=== PATIENT | male | born 1950 | race Caucasian/White ===

== ENCOUNTER → 2016-08-31 | Outpatient (CLI) | payer MEDICARE, OTHER | LOC: US 08-24 10:30 → CT 08-30 11:00 → OPSV 08:00 → US 10:30 | DX: C34.12 Malignant neoplasm of upper lobe, left bronchus or lung (principal); R19.00 Intra-abdominal and pelvic swelling, mass and lump, unspecified site; R86.0 Abnormal level of enzymes in specimens from male genital organs; K90.9 Intestinal malabsorption, unspecified; R10.9 Unspecified abdominal pain; R91.8 Other nonspecific abnormal finding of lung field; E86.0 Dehydration | CPT/HCPCS: 71260; 76700; 96360; 96361; J7030; J7050; Q9962 ==

== ENCOUNTER → 2016-10-08 | Outpatient (CLI) | payer MEDICARE, OTHER | LOC: NM 07:59 | DX: C34.12 Malignant neoplasm of upper lobe, left bronchus or lung (principal); M89.9 Disorder of bone, unspecified | CPT/HCPCS: 78306; A9503 ==

== ENCOUNTER → 2016-11-15 | Outpatient (CLI) | payer MEDICARE, OTHER | LOC: OPSV 11-04 12:00 → CT 11-04 13:30 → OPSV 12:23 | DX: C34.12 Malignant neoplasm of upper lobe, left bronchus or lung (principal); D50.9 Iron deficiency anemia, unspecified; K90.9 Intestinal malabsorption, unspecified; R91.8 Other nonspecific abnormal finding of lung field; R59.0 Localized enlarged lymph nodes; M47.896 Other spondylosis, lumbar region; E86.0 Dehydration | CPT/HCPCS: 72130; 72133; 96360; 96361; J1642; J7030; J7050; Q9962 ==

== ENCOUNTER → 2016-12-07 | Outpatient (CLI) | payer MEDICARE, OTHER | LOC: OPSV 10:16 → CT 13:00 | DX: C34.12 Malignant neoplasm of upper lobe, left bronchus or lung (principal); R53.83 Other fatigue; D50.9 Iron deficiency anemia, unspecified; R19.00 Intra-abdominal and pelvic swelling, mass and lump, unspecified site; K76.89 Other specified diseases of liver; R06.02 Shortness of breath; E86.0 Dehydration; K90.9 Intestinal malabsorption, unspecified; R10.9 Unspecified abdominal pain; Z03.89 Encounter for observation for other suspected diseases and conditions ruled out; Z77.9 Other contact with and (suspected) exposures hazardous to health; M89.9 Disorder of bone, unspecified; R93.8 Abnormal findings on diagnostic imaging of other specified body structures; R91.8 Other nonspecific abnormal finding of lung field; R59.0 Localized enlarged lymph nodes | CPT/HCPCS: 71260; 96365; 96366; J1642; J7030; J7050; Q9962 ==

== ENCOUNTER → 2020-12-11 | Outpatient (CLI) | payer MEDICARE | LOC: KOH-I 11:00 | DX: C34.12 Malignant neoplasm of upper lobe, left bronchus or lung (principal); R91.8 Other nonspecific abnormal finding of lung field; J90 Pleural effusion, not elsewhere classified | CPT/HCPCS: 71250 ==

== ENCOUNTER → 2021-11-30 | Outpatient (CLI) | payer MEDICARE | LOC: KOH-I 12:35 | DX: C34.12 Malignant neoplasm of upper lobe, left bronchus or lung (principal); D50.9 Iron deficiency anemia, unspecified; K90.9 Intestinal malabsorption, unspecified | CPT/HCPCS: 71250 ==